=== PATIENT | female | born 1955 | race Caucasian/White ===

== ENCOUNTER → 2020-08-16 | Day surgery (SDC) | payer OTHER ==
[~2020-08-16] MED LIST: AMOXICILLIN500 M1 PO; ANTACID168 MG PO; CLARITIN10 M2 PO; DOXYCYCLINE HY100 MG PO; ECOTRIN81 MG PO; FEROSUL325 MG PO; GLUCOPHAGE1000 MG PO; HYDROXYZINE HCL10 MG PO; LEVEMIR100 UNIT/1 SQ; LIPITOR20 MG PO; LISINOPRIL2.5 MG PO; LORTAB 5-325 M1 EACH PO; NORCO 5-325 TA1 EACH PO; NOVOLOG100 UNIT/1 SC; PAXIL20 MG PO; PROTONIX20 MG PO; TOPAMAX50 MG PO; VISTARIL25 MG PO; VITAMIN C 500500 MG PO; VITAMIN D PO; VITAMIN D2400 UNIT PO; VITAMIN D3125 MCG PO; ZESTRIL2.5 MG PO
== END | disposition home or self-care (01) ==
LOC: OR 06:04
DX: Z12.11 Encounter for screening for malignant neoplasm of colon (principal); E11.9 Type 2 diabetes mellitus without complications; I25.10 Atherosclerotic heart disease of native coronary artery without angina pectoris; E78.5 Hyperlipidemia, unspecified; I25.2 Old myocardial infarction; F41.9 Anxiety disorder, unspecified; M19.90 Unspecified osteoarthritis, unspecified site; F32.9 Major depressive disorder, single episode, unspecified; K21.9 Gastro-esophageal reflux disease without esophagitis; G43.909 Migraine, unspecified, not intractable, without status migrainosus; Z95.5 Presence of coronary angioplasty implant and graft; Z88.5 Allergy status to narcotic agent; Z88.8 Allergy status to other drugs, medicaments and biological substances; Z79.4 Long term (current) use of insulin; Z79.899 Other long term (current) drug therapy
CPT/HCPCS: 82962; J2704